=== PATIENT | female | born 1985 | race Caucasian/White ===

== ENCOUNTER → 2017-07-23 | Outpatient (CLI) | payer SELFPAY | LOC: FIMAGING 15:36 | PROVIDERS: ATTEND Physician Assistant | DX: O20.9 Hemorrhage in early pregnancy, unspecified (principal); Z3A.14 14 weeks gestation of pregnancy ==

== ENCOUNTER 2017-08-23 21:55 | Emergency (ER) | payer MEDICAID ==
[2017-08-23] MEDS ORDERED: NS 1,000 ML IV ONE ×2 (22:11→23:47)
--- NOTE | 2017-08-23 22:13 | EDPHY ---
HPI/HX/ROS/PE/MDM Narrative: CHIEF COMPLAINT: 18 weeks , cramping HISTORY OF PRESENT ILLNESS: The patient is a 18 week 32 y/o female with a history of pre- eclampsia complaining of abdominal cramping, onset yesterday. Yesterday the cramping began under her ribs and radiated down her abdomen. She took her prescribed sleeping medication and was able to sleep several hours prior to waking up due to the cramping. She took some more medication and slept several more hours. When she woke up this morning she was asymptomatic for a couple of hours but did vomit. Throughout this she has been nauseous and vomits regularly but has a normal appetite. The cramping eventually returned so she took her sleeping medication and slept for several hours. When she woke up this afternoon, her symptoms had not improved. Throughout the afternoon her cramping was primarily in her abdomen, but she did develop back pain. The cramping at this time felt "hard" and similar to a contraction. She has not felt movement yet. In addition to her cramping symptoms she has felt more lightheaded , has frequent urination, and has had diarrhea for the past 2 days. During one episode of diarrhea she thought there was blood present. She denies recent travel. No fever, chills, chest pain, shortness of breath, palpitations, constipation, hematuria, headache. Followed by Dr. Maral Buck CENTER MANAGER. REVIEW OF SYSTEMS: Aside from elements discussed in the HPI, a comprehensive 10-point review of systems was reviewed and is negative. PAST MEDICAL HISTORY: Pre-eclampsia, scoliosis, tonsillectomy, ovarian cysts, right shoulder injury SOCIAL HISTORY: , employed, lives in [place] VITAL SIGNS: Reviewed by me GENERAL: Well-developed, well-nourished, resting comfortably in no respiratory distress. HEENT: Atraumatic. Eyes: No icterus, no injection. Mouth: moist mucous membranes. No erythema or lesions. Neck: supple with no adenopathy. LUNGS: Clear to auscultation bilaterally, no wheezes, rhonchi or rales. CARDIAC: Regular rate and rhythm, no rubs, murmurs or gallops. ABDOMEN: Bilateral lower abdominal tenderness, mild uterine tenderness. No guarding or rebound. Soft, nondistended, bowel sounds normal. BACK: No CVA tenderness. EXTREMITIES: No trauma. No edema. Range of motion is normal throughout. NEURO: Alert and oriented, grossly nonfocal. SKIN: Warm and dry, no rash. PSYCHIATRIC: Normal mentation, no agitation. Portions of this note were transcribed by a biomedical photographer. I personally performed a history, physical exam, medical decision making, and confirmed accuracy of information the transcribed note. ED Course: The patient is a 18 week 32 y/o female with a history of pre- eclampsia complaining of abdominal and back cramping, onset yesterday. On exam she has bilateral lower abdominal tenderness and mild uterine tenderness. Labs and OB US ordered; 1L IV NS administered. Labs are reassuring. Ultrasound demonstrates normal activity, normal placenta. On re-examination the patient reports she continues to feel some abdominal cramping. She has received a L of normal saline but a 2nd will be given. She also received 50 mcg of fentanyl. Patient's urine has 3-5 white blood cells per high-power field but 4+ bacteria, and trace leukocyte esterase. She received a g of ceftriaxone in the emergency department and was discharged on Keflex. Suspect patient's symptoms may be related to either urinary tract infection, or gastroenteritis. At this point the patient has not provided a stool sample. She will be discharged home with instructions regarding how to return with a stool sample. She understands reasons to return to the emergency department including worsening cramping, vaginal bleeding, passage of tissue, leakage of fluid, fevers, or other concerns. MDM: Differential diagnoses for the patient's symptom complex was considered including but not limited to gastroenteritis, viral gastroenteritis, urinary tract infection, dehydration, threatened miscarriage. - Data Points Imaging Results: US: Impression: 1. Single viable intrauterine gestation without evidence of placenta previa or abruption. Results called to Dr. Dickinson at 11:30 PM. Dictated By: Fernando Borrero MD Imaging: Discussed imaging studies w/ call center consultant Radiologist Laboratory Results: Laboratory Results 08/23/17 22:35 08/23/17 22:35 Medications Given: Discontinued Medications Cephalexin (Keflex 500 Mg Prepack#4) 1 btl TAKEHOME EDNOW ONE PRN Reason: Protocol Stop: 08/23/17 23:37 Last Admin: 08/23/17 23:39 Dose: 1 btl Cephalexin HCl (Keflex) 500 mg PO EDNOW ONE PRN Reason: Protocol Stop: 08/23/17 23:36 Last Admin: 08/23/17 23:40 Dose: Not Given Fentanyl (Sublimaze) 75 mcg IVP EDNOW ONE Stop: 08/23/17 23:47 Last Admin: 08/24/17 00:01 Dose: 75 mcg Sodium Chloride (Ns) 1,000 mls @ 0 mls/hr IV EDNOW ONE; Wide Open PRN Reason: Protocol Stop: 08/23/17 22:12 Last Admin: 08/23/17 22:35 Dose: 1,000 mls Ceftriaxone Sodium/Dextrose (Rocephin 1 Gm (Premix)) 50 mls @ 100 mls/hr IV EDNOW ONE PRN Reason: Protocol Stop: 08/24/17 00:15 Last Admin: 08/24/17 00:02 Dose: 50 mls Sodium Chloride (Ns) 1,000 mls @ 0 mls/hr IV ONCE ONE; Wide Open PRN Reason: Protocol Stop: 08/23/17 23:48 Last Admin: 08/24/17 00:01 Dose: 1,000 mls Microbiology Results: MICROBIOLOGY 08/23/17 23:00 Urine,Clean Catch Urine Culture - Preliminary Two [place] Types General Time Seen by Provider: 08/23/17 22:12 Initial Vital Signs: Initial Vital Signs Temperature (C) 36.7 C 08/23/17 21:58 Heart Rate 99 08/23/17 21:58 Respiratory Rate 20 08/23/17 21:58 Blood Pressure 118/89 H 08/23/17 21:58 O2 Sat (%) 95 08/23/17 21:58 O2 Delivery Mode Room Air Allergies/Adverse Reactions: mushroom Allergy (Verified 08/23/17 21:58) Home Medications: Medication Instructions Recorded Levothyroxine 04/03/15 Adderall 10 MG (*) 12/20/15 Famotidine [Pepcid] 20 mg PO BID #6 tab 12/20/15 diphenhydrAMINE [Benadryl 50 MG 50 mg PO Q4-6PRN PRN #7 cap 12/20/15 (*)] predniSONE [prednisone 20mg (RX)] 60 mg PO DAILY #9 tab 12/20/15 Cephalexin [Keflex (RX)] 500 mg PO TID 6 Days cap 08/23/17 Departure - Departure Disposition: Home, Routine, Self-Care Clinical Impression: Urinary tract infection Qualifiers: Urinary tract infection type: acute cystitis Hematuria presence: with hematuria Qualified Code(s): N30.01 - Acute cystitis with hematuria Diarrhea Qualifiers: Diarrhea type: unspecified type Qualified Code(s): R19.7 - Diarrhea, unspecified Condition: Good Instructions: Cephalexin (By mouth), Urinary Tract Infection in Women (ED) Additional Instructions: You're urine is concerning for urinary tract infection. Please take Keflex 500 mg by mouth 3 times a day for the next 7 days. Urine will be sent for culture as well. You will be contacted if you need to change your antibiotic. Please drink plenty of fluids. You may use Tylenol as needed for crampy discomfort. Lab tests for stool cultures has been ordered. If you continue to have diarrhea , you may bring a sample to [facility] outpatient lab and this will be analyzed. If you continue to have abdominal discomfort, especially on the right lower side , or if he develops a fever, persistent vomiting, are not improving as expected , please return to the emergency department or seek care urgently. If you developed vaginal bleeding or increasing abdominal pain, please return to the emergency department or seek care urgently. Referrals: Maral Buck DO [Primary Care Provider] - As per Instructions Prescriptions: Cephalexin [Keflex (RX)] 500 mg PO TID 6 Days cap Report Scribed for: Jennifer Dickinson Report Scribed by: Olivia Velasquez Date of Report: 08/23/17 Time of Report: 22:13
[2017-08-23 22:49] LABS: PLATELET COUNT 193 10^3/uL (150-400)
[2017-08-23] MEDS ORDERED: CEPHALEXIN 500 MG CAP PO ONE (23:35)
[2017-08-23] MEDS ORDERED: CEPHALEXIN 500MG PREPACK#4 BTL TAKEHOME ONE (23:36)
[2017-08-23] MEDS ORDERED: fentaNYL 100 MCG/2 ML INJ IVP ONE (23:46)
[2017-08-24 00:20] VITALS: BP 108/70
== END 2017-08-24 00:39 | disposition home or self-care (01) ==
DX: O23.12 Infections of bladder in pregnancy, second trimester (principal); O99.89 Other specified diseases and conditions complicating pregnancy, childbirth and the puerperium; R19.7 Diarrhea, unspecified; E86.9 Volume depletion, unspecified; Z3A.18 18 weeks gestation of pregnancy
CPT/HCPCS: 96365; J0696; J3010